=== PATIENT | male | born 1985 | race Caucasian/White ===

== ENCOUNTER 2018-11-30 05:28 | Emergency (ER) | payer OTHER, MEDICAID ==
[2018-11-30] MEDS: KETOROLAC 30 MG INJ IM (06:41)
== END 2018-11-30 07:06 | disposition home or self-care (01) ==
LOC: FTE 07:06
DX: M72.2 Plantar fascial fibromatosis (principal)
CPT/HCPCS: 96372; 99284-25

== ENCOUNTER 2019-01-26 10:43 | Emergency (ER) | payer OTHER ==
[2019-01-26] MEDS: HYDROCODONE/APAP (5/325) TAB PO (12:24)
[2019-01-26] MEDS: KETOROLAC 60 MG INJ IM (12:25)
== END 2019-01-26 14:27 | disposition home or self-care (01) ==
LOC: FTE 10:43
DX: S82.52XA Displaced fracture of medial malleolus of left tibia, initial encounter for closed fracture (principal); S82.62XA Displaced fracture of lateral malleolus of left fibula, initial encounter for closed fracture; X50.1XXA Overexertion from prolonged static or awkward postures, initial encounter; Y92.9 Unspecified place or not applicable
CPT/HCPCS: 29515; 73562; 73590; 73610; 73630-LT; 96372; 99284-25